=== PATIENT | female | born 1965 ===

== ENCOUNTER 2024-03-17 05:13 | Day surgery (SDC) | payer OTHER ==
[2024-03-14 08:32] VITALS: BP 125/84
[2024-03-14 08:32] LABS: URINE APPEARANCE Clear; URINE BILIRRUBIN Negative (NEGATIVE); URINE BLOOD Negative; URINE COLOR Yellow; URINE KETONE Negative (NEGATIVE); URINE LEUKOCYTE Negative; URINE NITRATE Positive; URINE PROTEIN Negative (NEGATIVE); URINE UROBILINOGEN 0.2 E.U./dl
[2024-03-14 08:33] LABS: HEMATOCRIT 41.7 % (36.0-45.00); HEMOGLOBIN 14.2 g/dL (12.0-15.00); MEAN CELL VOLUME 90.7 fL (80.00-100.00); MEAN CORPUSCULAR HEMOGLOBIN 30.9 pg (27.00-32.0); MEAN CORPUSCULAR HGB CONC 34.1 g/dl (32.0-36.0); PLATELET COUNT 269 K/uL (150-450); RED CELL DISTRIBUTION WIDTH 16.1 % (11.5-14.5)
[2024-03-14 08:38] LABS: URINE EPITHELIAL CELLS 10.8 uL (0.0-38.8); URINE WBC 154.4 uL (0.0-23.2)
[2024-03-14 08:44] LABS: URINE BACTERIA > 9821.5 uL (0.0-1933); URINE GLUCOSE >=1000 MG/DL (NEGATIVE); URINE RBC 1.9 uL (0.0-20.8)
[2024-03-14 09:01] LABS: INR < 0.93; PARTIAL THROMBOPLASTIN TIME 24.9 SECONDS (22.0-34.0); PROTHROMBIN TIME 10.2 SECONDS (9.0-11.5)
[2024-03-14 09:05] LABS: ALBUMIN 3.7 gm/dL (3.4-5.0); BILIRUBIN TOTAL 0.39 mg/dL (0.3-1.2); CALCIUM 9.3 mg/dL (8.5-10.1); CREATININE SERUM 0.52 mg/dL (0.55-1.02); GFR 120.28; GLOBULINA 2.9 G/DL (2.4-3.5); POTASSIUM 4.13 mEq/L (3.5-5.1); TOTAL PROTEIN 6.6 gm/dL (6.4-8.2)
[~2024-03-17] VITALS: Ht 165.1 cm; Wt 68.9 kg
[~2024-03-17 05:13] MED LIST: ATORVASTATIN CA40 MG PO; GABAPENTIN800 M1 PO; L-THYROXINE; LOSARTAN POTASS25 MG PO; NORFLEX100 MG PO; SINGULAIR10 MG PO; SYNJARDY 12.5-1 EACH PO; TYSABRI300 MG/15 IV; VIT D3-VIT K21 EACH PO; VITAMIN B-125000 MC1 PO; ZYRTEC10 M3 PO; [UNRECOGNIZED DRUG - OTHER]
[2024-03-17] MEDS ORDERED: KETOROLAC TROMETHAMINE 30 MG VIAL IV ONE (07:00)
[2024-03-17] MEDS ORDERED: BUPIVACAINE HCL 30 ML VIAL IJ ONE (07:00)
[2024-03-17] MEDS ORDERED: KETOROLAC TROMETHAMINE 30 MG VIAL IJ ONE (07:00)
[2024-03-17] MEDS ORDERED: CEFAZOLIN SODIUM 1,000 MG VIAL IV ONE (07:00)
[2024-03-17] MEDS ORDERED: LIDOCAINE HCL 1%/EPINEPHRINE 20ML VIAL IJ ONE (07:00)
[2024-03-17] MEDS ORDERED: MEPERIDINE HCL 25 MG/ML AMPUL IV ONE (10:15)
== END 2024-03-17 11:05 | disposition home or self-care (01) ==
LOC: CIR.AMB 05:13
PROVIDERS: ATTEND Orthopaedic Surgery
DX: M75.121 Complete rotator cuff tear or rupture of right shoulder, not specified as traumatic (principal); M75.21 Bicipital tendinitis, right shoulder; M24.111 Other articular cartilage disorders, right shoulder